=== PATIENT | female | born 1975 | race Caucasian/White ===

== ENCOUNTER 2021-06-17 19:31 | Emergency (ER) | payer OTHER ==
[~2021-06-17] VITALS: Ht 157.5 cm; Wt 82.1 kg
[2021-06-17 19:43] VITALS: BP 147/75
--- NOTE | 2021-06-17 19:49 | NUR ---
PT AMBULATED TO RESTROOM WITH STEADY GAIT FOR URINE SAMPLE.
--- NOTE | 2021-06-17 19:52 | NUR ---
PT AMBULATED TO LOBBY.
--- NOTE | 2021-06-17 21:00 | NUR ---
CELESTED ASSESSING PT IN CHAIR B.
[2021-06-17] MEDS ORDERED: PHENAZOPYRIDINE 100 MG TAB PO ONE (21:05)
[2021-06-17] MEDS ORDERED: cephALEXin 500 MG CAP PO ONE (21:05)
--- NOTE | 2021-06-17 21:08 | NUR ---
PT AMBULATED TO RESTROOM TO COLLECT WETM[place] SAMPLE. EDUCATION PROVIDED, QUESTIONS ANSWERED REGARDING COLLECTION OF SAMPLE.
--- NOTE | 2021-06-17 21:10 | NUR ---
WET MOUNT COLLECTED AND TAKEN TO LAB BY LANDON JOHNSON. PT RETURNED TO [facility].
--- NOTE | 2021-06-17 21:40 | NUR ---
PT AMBULATED TO TRIAGE FOR MEDICATION ADMIN AND RETURNED TO LOBBY WITH EVEN AND STEADY GAIT.
[2021-06-17] MEDS ORDERED: CEPH-588 PO (21:45)
[2021-06-17] MEDS ORDERED: PHEN-1877 PO (21:45)
[2021-06-17] MEDS ORDERED: MICO15CR VG (21:45)
[2021-06-17 22:10] VITALS: BP 141/73
--- NOTE | 2021-06-17 22:10 | NUR ---
Patient discharged with v/s stable. Written and verbal after care instructions given and explained. Patient alert, oriented and verbalized understanding of instructions. Ambulatory with steady gait. All questions addressed prior to discharge. ID band removed. Patient advised to follow up with PMD. Rx of KEFLEX, MONISTAT AND PYRIDIUM given. Patient educated on indication of medication including possible reaction and side effects. Opportunity to ask questions provided and answered.
== END 2021-06-17 22:10 | disposition home or self-care (01) ==
LOC: MED 19:31
DX: N39.0 Urinary tract infection, site not specified (principal); N89.8 Other specified noninflammatory disorders of vagina
CPT/HCPCS: 81002; 81025; 87210; 99283